=== PATIENT | female | born 1990 | race Caucasian/White ===

== ENCOUNTER → 2022-05-29 | Outpatient (CLI) | payer OTHER ==
[2022-05-29 13:58] VITALS: BP 116/82; PULSE 80; TEMP 98; BMI 41.2
--- NOTE | 2022-05-29 15:50 | P.PN ---
Progress Note - Text Progress Note Date: 05/29/22 Patient left without being seen.
== END ==
LOC: BARWHC3 12:44
PROVIDERS: ATTEND Surgery Plastic and Reconstructive Surgery
DX: Z53.9 Procedure and treatment not carried out, unspecified reason (principal)
CPT/HCPCS: 99202

== ENCOUNTER → 2023-04-28 | Day surgery (SDC) | payer OTHER ==
[~2023-04-28] MED LIST: LIDOCAINE 1% (10MG/ML) FOR IV START INTRADERMA PRN; LIDOCAINE 1% INJ 10MG/ML (20 ML MDV) ONE; ONDANSETRON 4 MG/2 ML VIAL IVP PRN; PROPOFOL 10 MG/ML 20 ML VIAL IV ONE
--- NOTE | 2023-04-28 07:36 | P.GSHP ---
History of Present Illness H&P Date: 04/28/23 CHIEF COMPLAINT: GERD HISTORY OF PRESENT ILLNESS: The patient is a 32-year-old female who presents reports gastroesophageal reflux disease. Upper endoscopy was offered for further evaluation and management. PAST MEDICAL HISTORY: Please see list. PAST SURGICAL HISTORY: Please see list. MEDICATIONS: Please see list. ALLERGIES: Please see list. SOCIAL HISTORY: No illicit drug use FAMILY HISTORY: No reports of Crohn disease or ulcerative colitis. REVIEW OF ORGAN SYSTEMS: CONSTITUTIONAL: No reports of fevers or chills. GI: Denies any blood in stools or constipation. PHYSICAL EXAM: VITAL SIGNS: Stable GENERAL: Well-developed and pleasant in no acute distress. HEENT: No scleral icterus. Extraocular movements grossly intact. Moist buccal mucosa. NECK: Supple without lymphadenopathy. CHEST: Unlabored respirations. Equal bilateral excursions. CARDIOVASCULAR: Regular rate and rhythm. Distal 2+ pulses. ABDOMEN: Soft, nondistended. MUSCULOSKELETAL: No clubbing, cyanosis, or edema. ASSESSMENT: 1. Gastroesophageal reflux disease PLAN: 1. Recommend proceeding with an upper endoscopy Past Medical History Past Medical History: Osteoarthritis (OA) Additional Past Medical History / Comment(s): hx. anemia History of Any Multi-Drug Resistant Organisms: None Reported Past Surgical History: Section Additional Past Surgical History / Comment(s): D&C, wisdom teeth removed Past Anesthesia/Blood Transfusion Reactions: No Reported Reaction, Motion Sickness Smoking Status: Former smoker Medications and Allergies Home Medications Medication Instructions Recorded Confirmed Type Cholecalciferol (Vitamin D3) 125 mcg PO DAILY 05/29/22 04/24/23 History [Vitamin D3 (125 MCG = 5,000 IU)] Sertraline [Zoloft] 50 mg PO DAILY 05/29/22 04/24/23 History buPROPion HCL [buPROPion HCL XL] 150 mg PO DAILY 05/29/22 04/24/23 History hydrOXYzine HCL 50 mg PO HS 03/25/23 04/24/23 History Ferrous Gluconate [Fergon] 27 mg PO DAILY 04/24/23 04/24/23 History Allergies Allergy/AdvReac Type Severity Reaction Status Date / Time No Known Allergies Allergy Verified 04/24/23 17:34
[2023-04-28] MEDS: LACTATED RINGERS 1,000 ML IV SCH (08:15)
[2023-04-28 08:16] VITALS: RESP 16; TEMP 97.1
[2023-04-28] MEDS: MIDAZOLAM 2 MG/2 ML VIAL IVP ONE (08:20)
--- NOTE | 2023-04-28 09:34 | P.PCN ---
Date of Procedure: 04/28/23 Description of Procedure: PREOPERATIVE DIAGNOSIS: Gastroesophageal reflux disease. Morbid obesity. POSTOPERATIVE DIAGNOSIS: Gastroesophageal reflux disease. Morbid obesity. Gastritis. OPERATION: Esophagogastroduodenoscopy with biopsies along esophagus, antrum and duodenum SURGEON: Cheyanne Pavon MD ANESTHESIA: MAC. INDICATIONS: The patient is a 32-year-old female who presents with reflux disease. Benefits and risks of the procedure were described. Informed consent was obtained. DESCRIPTION: The patient was brought into the endoscopy suite and laid in the left lateral decubitus position. An Olympus gastroscope was passed along the posterior oropharynx down to the distal esophagus where the squamocolumnar junction was encountered at 36 cm from the incisors. The stomach was entered and no bile reflux was found. Additional findings are listed below. Biopsies with cold forceps were obtained of the antrum. The first through third portion of the duodenum was examined. Retroflexion of the scope confirmed Hill grade 2 lower esophageal valve. The squamocolumnar junction demonstrated LA grade B erosive esophagitis. The stomach was desufflated. The patient tolerated the procedure well. FINDINGS: Squamocolumnar junction 36 cm from the incisors. Diaphragmatic hiatus at 36 cm. Hill grade 2 lower esophageal valve. LA grade B erosive esophagitis. Biopsies obtained Biopsies obtained of the duodenum. Acute gastritis with bleeding along gastric greater curvature of stomach, 5 mm. Biopsies obtained of antrum RECOMMENDATIONS: Upper endoscopy as needed. Plan - Discharge Summary Discharge Rx Participant: No New Discharge Prescriptions: Continue Cholecalciferol (Vitamin D3) [Vitamin D3 (125 MCG = 5,000 IU)] 125 mcg PO DAILY hydrOXYzine HCL 50 mg PO HS Ferrous Gluconate [Fergon] 27 mg PO DAILY Sertraline [Zoloft] 50 mg PO DAILY buPROPion HCL [buPROPion HCL XL] 150 mg PO DAILY Discharge Medication List Cholecalciferol (Vitamin D3) [Vitamin D3 (125 MCG = 5,000 IU)] 125 mcg PO DAILY 05/29/22 [History] Sertraline [Zoloft] 50 mg PO DAILY 05/29/22 [History] buPROPion HCL [buPROPion HCL XL] 150 mg PO DAILY 05/29/22 [History] hydrOXYzine HCL 50 mg PO HS 03/25/23 [History] Ferrous Gluconate [Fergon] 27 mg PO DAILY 04/24/23 [History] Follow up Appointment(s)/Referral(s): [facility] [NON-STAFF] - 05/21/23 Patient Instructions/Handouts: Gastritis (DC) Discharge Disposition: HOME SELF-CARE
[2023-04-28 10:01] VITALS: BP 97/64; PULSE 56
== END | disposition home or self-care (01) ==
LOC: ORWHC2ENDO 07:34
PROVIDERS: ATTEND Surgery Plastic and Reconstructive Surgery
DX: K21.00 Gastro-esophageal reflux disease with esophagitis, without bleeding (principal); K29.50 Unspecified chronic gastritis without bleeding; K31.9 Disease of stomach and duodenum, unspecified; E66.01 Morbid (severe) obesity due to excess calories; M19.90 Unspecified osteoarthritis, unspecified site; F12.90 Cannabis use, unspecified, uncomplicated; F41.9 Anxiety disorder, unspecified; F31.9 Bipolar disorder, unspecified; Z79.899 Other long term (current) drug therapy; Z87.891 Personal history of nicotine dependence; Z68.41 Body mass index [BMI] 40.0-44.9, adult
CPT/HCPCS: 81025; 88305; 84703; 43239; J2250; J2001; J2704

== ENCOUNTER → 2023-04-30 | Outpatient (CLI) | payer OTHER ==
--- NOTE | 2023-04-30 16:48 | P.BASOAP ---
Subjective Progress Note Date: 04/30/23 SHe reportws abdominal pain and severe reflux. Pathology reviewed. Start omeprazole.She gained 16 pounds! in 1 month. EGD Assessment/Plan Plan: Date: Initial Weight: 94.801 kg Initial BMI: Current Weight: Current BMI: Type of Surgery: Total Volume in Band: Previous Volume: Volume Removed: Volume Added: Band Size:
[2023-04-30 17:26] VITALS: BP 102/71; PULSE 69; RESP 16; TEMP 98.1; BMI 42.1
== END ==
LOC: BARWHC3 15:21
PROVIDERS: ATTEND Surgery Plastic and Reconstructive Surgery
DX: E66.01 Morbid (severe) obesity due to excess calories (principal); Z53.9 Procedure and treatment not carried out, unspecified reason
CPT/HCPCS: 99211

== ENCOUNTER → 2023-05-01 | Outpatient (CLI) | payer SELFPAY ==
[2023-05-01 14:58] LABS: INR 0.9 (<1.2); Partial Thromboplastin Time 26.3 sec (22.0-30.0); Prothrombin Time 10.3 sec (10.0-12.5)
[2023-05-01 18:41] LABS: HCT 40.1 % (37.2-46.3); HGB 12.8 g/dL (12.0-15.0); MCH 26.3 pg (27.0-32.0); MCHC 31.9 g/dL (32.0-37.0); MCV 82.5 FL (80.0-97.0); Mean Platelet Volume 9.6 FL (9.5-12.2); NRBC Per 100 WBC 0 X 10*3/uL (0.00-0.01); Platelet Count 309 X 10*3/uL (140-440); RBC 4.86 X 10*6/uL (4.10-5.20); RDW 13.6 % (11.5-14.5)
[2023-05-01 18:52] LABS: Prealbumin 26.3 mg/dL (18.0-42.0)
[2023-05-01 19:10] LABS: % Iron Saturation 42.52 (12.00-45.00); ALT 44 U/L (8-44); AST 31 U/L (13-35); Albumin 4.3 g/dL (3.8-4.9); Albumin/Globulin Ratio 1.65 Ratio (1.60-3.17); Alkaline Phosphatase 146 U/L (41-126); BUN/Creat Ratio 24.57 Ratio (12.00-20.00); Blood Urea Nitrogen 17.2 mg/dL (9.0-27.0); Carbon Dioxide 25.2 mmol/L (21.6-31.8); Chloride 102 mmol/L (96-109); Chol/HDL Ratio 4.19 Ratio; Ferritin 42.5 ng/mL (10.0-291.0); Globulin 2.6 g/dL (1.6-3.3); Glucose 114 mg/dL (70-110); Iron 162 UG/DL (50-170); LDL Cholesterol,Calculated 92.6 mg/dL (0.0-131.0); Magnesium 1.8 mg/dL (1.5-2.4); Potassium 4.1 mmol/L (3.5-5.5); Sodium 139 mmol/L (135-145); Total Bilirubin 0.2 mg/dL (0.3-1.2); Total Iron Binding Capacity 381 UG/DL (228-460); Total Protein 6.9 g/dL (6.2-8.2)
[2023-05-02 11:51] LABS: Zinc, Serum 59 ug/dL (60-130)
[2023-05-03 09:50] LABS: Anabasine Urine <2.0 ng/mL (<2.0)
== END | disposition home or self-care (01) ==
LOC: LABWHC1 12:16
PROVIDERS: ATTEND Surgery Plastic and Reconstructive Surgery
DX: E66.01 Morbid (severe) obesity due to excess calories (principal); E89.1 Postprocedural hypoinsulinemia; D50.8 Other iron deficiency anemias; K91.2 Postsurgical malabsorption, not elsewhere classified; E44.0 Moderate protein-calorie malnutrition; E44.1 Mild protein-calorie malnutrition; E45 Retarded development following protein-calorie malnutrition; E46 Unspecified protein-calorie malnutrition; E55.9 Vitamin D deficiency, unspecified; K74.1 Hepatic sclerosis; N19 Unspecified kidney failure; T56.894A Toxic effect of other metals, undetermined, initial encounter; K50.90 Crohn's disease, unspecified, without complications
CPT/HCPCS: 36415; 80053; 80061; 80307; 80323; 82306; 82525; 82607; 82728; 82746; 83036; 83540; 83550; 83735; 83970; 84100; 84134; 84255; 84425; 84443; 84590; 84630; 85027; 85610; 85730; 93005

== ENCOUNTER → 2023-05-26 | Outpatient (CLI) | payer OTHER ==
[2023-05-26 15:31] VITALS: BMI 42.7
== END ==
LOC: BARWHC3 12:51
PROVIDERS: ATTEND Surgery Plastic and Reconstructive Surgery
DX: E66.01 Morbid (severe) obesity due to excess calories (principal); Z71.3 Dietary counseling and surveillance; Z68.41 Body mass index [BMI] 40.0-44.9, adult
CPT/HCPCS: 97804; G0463; 99211

== ENCOUNTER → 2023-06-11 | Outpatient (CLI) | payer OTHER ==
[2023-06-11 19:00] LABS: Basophils # (A) 0.04 X 10*3/uL (0.00-0.10); Basophils % (A) 0.5 %; Eosinophils # (A) 0.08 X 10*3/uL (0.04-0.35); HCT 42.1 % (37.2-46.3); HGB 13.4 g/dL (12.0-15.0); Lymphocytes # (A) 1.96 X 10*3/uL (0.90-5.00); Lymphocytes % (A) 25.4 %; MCH 26.8 pg (27.0-32.0); MCHC 31.8 g/dL (32.0-37.0); MCV 84.2 FL (80.0-97.0); Mean Platelet Volume 10.8 FL (9.5-12.2); Monocytes # (A) 0.58 X 10*3/uL (0.20-1.00); Monocytes % (A) 7.5 %; NRBC Per 100 WBC 0 X 10*3/uL (0.00-0.01); Neutrophils # (A) 5.05 X 10*3/uL (1.80-7.70); Neutrophils % (A) 65.3 %; Platelet Count 282 X 10*3/uL (140-440); RDW 13.2 % (11.5-14.5); WBC 7.73 X 10*3/uL (4.50-10.00)
[2023-06-11 19:35] LABS: ALT 14 U/L (8-44); AST 15 U/L (13-35); Albumin 4.5 g/dL (3.8-4.9); Albumin/Globulin Ratio 1.73 Ratio (1.60-3.17); Alkaline Phosphatase 119 U/L (41-126); Calcium 9.7 mg/dL (8.7-10.3); Carbon Dioxide 24.5 mmol/L (21.6-31.8); Chloride 103 mmol/L (96-109); Globulin 2.6 g/dL (1.6-3.3); Glucose 105 mg/dL (70-110); Sodium 139 mmol/L (135-145); Total Bilirubin 0.2 mg/dL (0.3-1.2); Total Protein 7.1 g/dL (6.2-8.2)
== END | disposition home or self-care (01) ==
LOC: LABPAT 14:32
PROVIDERS: ATTEND Surgery Plastic and Reconstructive Surgery
DX: Z01.812 Encounter for preprocedural laboratory examination (principal)
CPT/HCPCS: 36415; 80053; 85025; 86850; 86900; 86901

== ENCOUNTER → 2023-06-11 | Outpatient (CLI) | payer OTHER ==
[2023-06-11 14:18] VITALS: BP 125/74; PULSE 75; RESP 16; TEMP 98.1; BMI 41.5
--- NOTE | 2023-06-11 14:23 | P.BASOAP ---
Subjective Progress Note Date: 06/11/23 DATE OF SERVICE: 06/11/23 CHIEF COMPLAINT: Morbid obesity HISTORY OF PRESENT ILLNESS: Amna Valentine is a 33-year-old female who comes with lifelong morbid obesity. As result of morbid obesity, she has developed osteoarthritis of the hips and knees including gastroesophageal reflux disease. She is here for gastric bypass consent. She has lost 11 pounds on her own prior to her 2 week protein diet. "I feel great!" She take hydoxizine for sleep. She is on medications for night newman and night terrors. She wants to be off her psych medications. At height of 5 feet 1 inches, her ideal body weight is 131 pounds. Highest weight 225 pounds, body mass index 42.4. She comes in 222 pounds. Her body mass index is 41.6. She is 91 pounds overweight. PAST MEDICAL HISTORY: 1. Morbid obesity due to excess calories 2. Body mass index of 41.6 3. Osteoarthritis of the knees. 4. Osteoarthritis of the lower back. 5. Gastroesophageal reflux disease 6. Depressive disorder 7. Generalized anxiety disorder 8. Bipolar disorder 9. Asthma PAST SURGICAL HISTORY: 1. Upper endoscopy 2. section 3. Dilatation and curettage 4. [place] tooth extraction HOME MEDICATIONS: Listed and reviewed ALLERGIES: Seen list and reviewed SOCIAL HISTORY: Past tobacco use. Marijuana use. FAMILY HISTORY: No family history of ulcerative colitis disease or Crohn's disease. Family history of morbid obesity. No lupus in the family. No reports of stomach or esophageal cancer. REVIEW OF ORGAN SYSTEMS: CONSTITUTIONAL: At height of 5 feet 1 inches, her ideal body weight is 131 pounds. Highest weight 225 pounds, body mass index 42.4. She comes in 222 pounds. Her body mass index is 41.6. She is 91 pounds overweight. HEENT: Denies any active troubles with vision or hearing. ENDOCRINE: Denies diabetes. Denies hypothyroidism. CARDIOVASCULAR: Denies reports of palpitations or heart attacks or chest pain. RESPIRATORY: Has daytime somnolence. GASTROINTESTINAL: Denies any bright red blood per rectum. Has gastroesophageal reflux disease. MUSCULOSKELETAL: Has lower back pain and joint pain. Has osteoarthritis of the knees. NEURO: No headaches. No seizure disorders. PSYCH: Has depression. No suicidal ideation. Has bipolar disorder, generalized anxiety. RHEUMATOLOGIC: No lupus. No rheumatoid arthritis. HEMATOLOGIC: Denies any abnormal bleeding or bruising. No personal history of DVTs. SKIN: Has rash. No skin cancer. PHYSICAL EXAM: VITAL SIGNS: Height 5 foot 1 inches, weight 222 pounds. BMI 41.6 Vital Signs Temp 98.1 F 06/11/23 13:58 Pulse 75 06/11/23 13:58 Resp 16 06/11/23 13:58 BP 125/74 06/11/23 13:58 Pulse Ox FiO2 GENERAL: Well-developed in no acute distress. HEENT: No scleral icterus. Extraocular movements grossly intact. Hears conversational speech. No nasal drainage. NECK: Supple without lymphadenopathy. CHEST: Nonlabored respirations with equal bilateral excursions. CARDIOVASCULAR: Regular rate and regular rhythm. Distal 2+ pulses. ABDOMEN: Obese, soft, nontender, nondistended. MUSCULOSKELETAL: No clubbing, cyanosis. NEURO: No focal or lateralizing signs. Cranial nerves 2 through 12 grossly within normal limits. PSYCH: Appropriate affect. Alert and oriented to person, place and time. SKIN: Good skin turgor. Well perfused. LABS: Reviewed from April 2023 demonstrates elevated cholesterol and triglycerides. Vitamin D low 24. Urine cotinine and nicotine elevated. Repeat May 2023 lower. Zinc low EKG April 2023 within normal limits. EGD FINDINGS: Squamocolumnar junction 36 cm from the incisors. Diaphragmatic hiatus at 36 cm. Hill grade 2 lower esophageal valve. LA grade B erosive esophagitis. Biopsies obtained Biopsies obtained of the duodenum. Acute gastritis with bleeding along gastric greater curvature of stomach, 5 mm. Biopsies obtained of antrum Final Pathologic Diagnosis A. DUODENUM, BIOPSY: Benign small bowel mucosa with reactive duodenopathy having rare foveolar metaplasia. Negative for histologic features of celiac disease. B. STOMACH, ANTRUM, BIOPSY: Reactive gastropathy with minimal chronic inflammation. Negative for Helicobacter organisms on H&E staining. C. ESOPHAGUS, BIOPSY: Mild reflux esophagitis. Negative for Barretts esophagus. ASSESSMENT: 1. Morbid obesity due to excess calories 2. Body mass index of 42.4 to 41.6 3. Osteoarthritis of the knees. 4. Osteoarthritis of the lower back. 5. Gastroesophageal reflux disease 6. Depressive disorder 7. Generalized anxiety disorder 8. Bipolar disorder 9. Asthma 10. Insomnia PLAN: 1. Bariatric options between a sleeve, band and a Karlee-en-Y gastric bypass were reviewed in detail. The patient elected for gastric bypass. Robotic assisted approach described. 2. The [place] [facility] Data was also reviewed with benefits and risks as described. 3. An 8 page second-generation bariatric consent form was reviewed in detail including potential of bleeding, infection, leaks, adequate weight loss, nutritional deficiencies which the patient demonstrated understanding of the risks. 4. A 2 week high-protein low caloric 800 kcal diet described to address hepatomegaly. 5. Preoperative labs including complete metabolic panel and CBC with type and screen recommended. 6. DVT prophylaxis per [place] [facility]. 7. Antibiotic prophylaxis. 8. Inpatient hospitalization anticipated for more than 2 nights. 9. All questions and concerns were addressed with the patient. 10. Overall, patient has expressed understanding of bariatric care including postoperative diet and commitment of lifestyle. Patient should benefit from surgical intervention for correction of morbid obesity. 12. Avoiding dehydration reviewed. 13. She has insomnia and takes hydroxyzine for sleep. For sleep alternatives, use of of hot coca, warm milk described. Reduce usage of cell phones at bedtime described. Deep breathing exercises emphasized. 14. Goal of 220 pounds target 5% weight loss advised. 15. She wants sleeve gastrectomy as an alternative in the presence of severe adhesions. 16. She is elevated risk of complications due to comorbid conditions Objective - Vital Signs Vital signs: Vital Signs Temp 98.1 F 06/11/23 13:58 Pulse 75 06/11/23 13:58 Resp 16 06/11/23 13:58 BP 125/74 06/11/23 13:58 Pulse Ox FiO2 Intake & Output 06/10/23 06/11/23 06/11/23 18:59 06:59 18:59 Weight 100.698 kg Assessment/Plan Plan: Date: 06/11/23 Initial Weight: 94.801 kg Initial BMI: 39.2 Current Weight: 100.698 kg Current BMI: 41.5 Type of Surgery: Total Volume in Band: Previous Volume: Volume Removed: Volume Added: Band Size:
== END ==
LOC: BARWHC3 13:39
PROVIDERS: ATTEND Surgery Plastic and Reconstructive Surgery
DX: E66.01 Morbid (severe) obesity due to excess calories (principal); M17.0 Bilateral primary osteoarthritis of knee; M47.816 Spondylosis without myelopathy or radiculopathy, lumbar region; K21.9 Gastro-esophageal reflux disease without esophagitis; F41.1 Generalized anxiety disorder; F31.9 Bipolar disorder, unspecified; J45.909 Unspecified asthma, uncomplicated; G47.00 Insomnia, unspecified; Z68.41 Body mass index [BMI] 40.0-44.9, adult
CPT/HCPCS: 99211

== ENCOUNTER 2023-06-16 06:58 | Inpatient (IN) | payer OTHER ==
--- NOTE | 2023-06-16 06:31 | P.GSHP ---
History of Present Illness H&P Date: 06/16/23 CHIEF COMPLAINT: Morbid obesity HISTORY OF PRESENT ILLNESS: Amna Valentine is a 33-year-old female who comes with lifelong morbid obesity. As result of morbid obesity, she has developed osteoarthritis of the hips and knees. She has completed medical supervised weight loss. She completed medical including cardiac assessment. She has completed psychological risk assessment. All surgical options were reviewed. She elected for gastric bypass. At height of 5 feet 1 inches, her ideal body weight is 131 pounds. She comes in 220 pounds. Her body mass index is 41.6 She is 89 pounds overweight. She reports at home she was over 230+ pounds. She reports over 10 pound weight loss. She has reached her goal 5% weight loss. PAST MEDICAL HISTORY: 1. Morbid obesity due to excess calories 2. Body mass index of 41.6 3. Osteoarthritis of the knees. 4. Osteoarthritis of the lower back. 5. Gastroesophageal reflux disease 6. Depressive disorder 7. Generalized anxiety disorder 8. Bipolar disorder 9. Asthma PAST SURGICAL HISTORY: 1. Upper endoscopy 2. section 3. Dilatation and curettage 4. [place] tooth extraction HOME MEDICATIONS: Listed and reviewed ALLERGIES: Seen list and reviewed SOCIAL HISTORY: Past tobacco use. Marijuana use. FAMILY HISTORY: No family history of ulcerative colitis disease or Crohn's disease. Family history of morbid obesity. No lupus in the family. No reports of stomach or esophageal cancer. REVIEW OF ORGAN SYSTEMS: CONSTITUTIONAL: At height of 5 feet 1 inches, her ideal body weight is 131 pounds. She comes in 220 pounds. Her body mass index is 41.6 She is 89 pounds overweight. Highest weight 226 pounds, BMI 42.7. HEENT: Denies any active troubles with vision or hearing. ENDOCRINE: Denies diabetes. Denies hypothyroidism. CARDIOVASCULAR: Denies reports of palpitations or heart attacks or chest pain. RESPIRATORY: Has daytime somnolence. GASTROINTESTINAL: Denies any bright red blood per rectum. Has gastroesophageal reflux disease. MUSCULOSKELETAL: Has lower back pain and joint pain. Has osteoarthritis of the knees. NEURO: No headaches. No seizure disorders. PSYCH: Has depression. No suicidal ideation. Has bipolar disorder, generalized anxiety. RHEUMATOLOGIC: No lupus. No rheumatoid arthritis. HEMATOLOGIC: Denies any abnormal bleeding or bruising. No personal history of DVTs. SKIN: Has rash. No skin cancer. PHYSICAL EXAM: VITAL SIGNS: Height 5 foot 1 inches, weight 220 pounds. BMI 41.6 GENERAL: Well-developed in no acute distress. HEENT: No scleral icterus. Extraocular movements grossly intact. Hears conversational speech. No nasal drainage. NECK: Supple without lymphadenopathy. CHEST: Nonlabored respirations with equal bilateral excursions. CARDIOVASCULAR: Regular rate and regular rhythm. Distal 2+ pulses. ABDOMEN: Obese, soft, nontender, nondistended. MUSCULOSKELETAL: No clubbing, cyanosis. NEURO: No focal or lateralizing signs. Cranial nerves 2 through 12 grossly within normal limits. PSYCH: Appropriate affect. Alert and oriented to person, place and time. SKIN: Good skin turgor. Well perfused. ASSESSMENT: 1. Morbid obesity due to excess calories 2. Body mass index of 41.6 3. Osteoarthritis of the knees. 4. Osteoarthritis of the lower back. 5. Gastroesophageal reflux disease 6. Depressive disorder 7. Generalized anxiety disorder 8. Bipolar disorder 9. Asthma PLAN: 1. Bariatric options between a sleeve, band and a Karlee-en-Y gastric bypass were reviewed in detail. The patient elected for a gastric bypass. Robotic assisted approach described. 2. The [place] [facility] Data was also reviewed with benefits and risks as described. 3. An 8 page second-generation bariatric consent form was reviewed in detail including potential of bleeding, infection, leaks, adequate weight loss, nutritional deficiencies which the patient demonstrated understanding of the risks. 4. A 2 week high-protein low caloric 800 kcal diet described to address hepatomegaly. 5. Preoperative labs including complete metabolic panel and CBC with type and screen recommended. 6. DVT prophylaxis per [place] [facility]. 7. Antibiotic prophylaxis. 8. Inpatient hospitalization anticipated for more than 2 nights. 9. All questions and concerns were addressed with the patient. 10. She is at elevated risk for perioperative complications with multiple antidepressants due to increased risk of bleeding. 11. Overall, patient has expressed understanding of bariatric care including postoperative diet and commitment of lifestyle. Patient should benefit from surgical intervention for correction of her morbid obesity. 12. Patient does report that if findings during surgery demonstrates moderate intra-abdominal adhesions, she is elected for sleeve gastrectomy as alternative. Past Medical History Past Medical History: Asthma, Osteoarthritis (OA) Additional Past Medical History / Comment(s): hx. anemia,does not use inhalers for asthma History of Any Multi-Drug Resistant Organisms: None Reported Past Surgical History: Section Additional Past Surgical History / Comment(s): D&C, wisdom teeth removed Past Anesthesia/Blood Transfusion Reactions: No Reported Reaction, Family History of Problems w/ Anesthesia, Motion Sickness Additional Past Anesthesia/Blood Transfusion Reaction / Comment(s): no hx blood transfusion. mom has PONV Smoking Status: Former smoker - Past Family History Mother Family Medical History: No Reported History Father Family Medical History: Deep Vein Thrombosis (DVT) Medications and Allergies Home Medications Medication Instructions Recorded Confirmed Type Cholecalciferol (Vitamin D3) 125 mcg PO DAILY 05/29/22 06/13/23 History [Vitamin D3 (125 MCG = 5,000 IU)] Sertraline [Zoloft] 75 mg PO QAM 05/29/22 06/13/23 History buPROPion HCL [buPROPion HCL XL] 150 mg PO QAM 05/29/22 06/13/23 History hydrOXYzine HCL 50 mg PO HS 03/25/23 06/13/23 History Iron 27 mg PO DAILY 06/11/23 06/13/23 History Multivitamins, Thera [Multivitamin 1 tab PO DAILY 06/11/23 06/13/23 History (formulary)] Allergies Allergy/AdvReac Type Severity Reaction Status Date / Time No Known Allergies Allergy Verified 06/11/23 15:56
[2023-06-16] MEDS: LACTATED RINGERS 1,000 ML IV SCH (07:33)
[2023-06-16] MEDS: ALVIMOPAN 12 MG CAPSULE PO PRN (08:07)
[2023-06-16] MEDS: ACETAMINOPHEN TAB 500 MG TAB PO PRN (08:07)
[2023-06-16] MEDS: SCOPOLAMINE 1 MG/72 HR PATCH TRANSDERM STA ×2 (08:08→15:42)
[2023-06-16] MEDS: ONDANSETRON 4 MG/2 ML VIAL IVP PRN (08:14)
[2023-06-16] MEDS: DEXAMETHASONE SOD PHOSPHATE 4 MG/ML 1 ML VIAL IV ONE (08:14)
[2023-06-16] MEDS: PANTOPRAZOLE 40 MG/10 ML VIAL IVP STA (08:15)
[2023-06-16] MEDS: HEPARIN SODIUM,PORCINE 5,000 UNIT/ML 1 ML VIAL SQ PRN (08:15)
[2023-06-16] MEDS: CHLORHEXIDINE GLUCONATE 15 ML CUP MUCOUS MEM STA (08:17)
[2023-06-16] MEDS: MIDAZOLAM 2 MG/2 ML VIAL IVP ONE (08:22)
[2023-06-16] MEDS ORDERED: ROCURONIUM 10 MG/ML (5 ML VIAL) IV ONE (09:58)
[2023-06-16] MEDS ORDERED: fentaNYL (PF) 50 MCG/ML 2 ML AMP ONE (09:58)
[2023-06-16] MEDS ORDERED: GLYCOPYRROLATE 0.2 MG/ML 2 ML VIAL ONE (09:58)
[2023-06-16] MEDS ORDERED: SUCCINYLCHOLINE CHLORIDE 200 MG/10 ML VIAL IV ONE (09:58)
[2023-06-16] MEDS ORDERED: ONDANSETRON 4 MG/2 ML VIAL ONE (09:58)
[2023-06-16] MEDS ORDERED: diphenhydrAMINE 50 MG/ML 1 ML VIAL ONE (09:58)
[2023-06-16] MEDS ORDERED: PHENYLEPHRINE 10 MG/ML VIAL ONE (09:58)
[2023-06-16] MEDS ORDERED: LIDOCAINE 1% INJ 10MG/ML (20 ML MDV) ONE (09:58)
[2023-06-16] MEDS ORDERED: NEOSTIGMINE 1 MG/ML 10 ML VIAL ONE (09:58)
[2023-06-16] MEDS ORDERED: PROPOFOL 10 MG/ML 20 ML VIAL IV ONE (09:58)
[2023-06-16] MEDS ORDERED: MIDAZOLAM 2 MG/2 ML VIAL ONE (09:58)
[2023-06-16] MEDS: LIDOCAINE 1%-EPI 1:100,000 20 ML VIAL SQ ONE (10:03)
[2023-06-16] MEDS: LACTATED RINGERS 1,000 ML IV ONE (11:38)
[2023-06-16] MEDS ORDERED: NALOXONE 0.4 MG/ML 1 ML VIAL IV PRN (13:05)
[2023-06-16] MEDS: HYDROmorphone 0.5 MG/0.5 ML SYRINGE IVP PRN (13:11)
--- NOTE | 2023-06-16 13:12 | P.OP ---
Date of Procedure: 06/16/23 Description of Procedure: SURGEON: VLADIMIR VELAZQUEZ MD PREOPERATIVE DIAGNOSES: 1. Morbid obesity due to excess calories 2. Body mass index of 41.6 3. Osteoarthritis of the knees. 4. Osteoarthritis of the lower back. 5. Gastroesophageal reflux disease 6. Depressive disorder 7. Generalized anxiety disorder 8. Bipolar disorder 9. Asthma POSTOPERATIVE DIAGNOSES: 1. Morbid obesity due to excess calories 2. Body mass index of 41.6 3. Osteoarthritis of the knees. 4. Osteoarthritis of the lower back. 5. Gastroesophageal reflux disease 6. Depressive disorder 7. Generalized anxiety disorder 8. Bipolar disorder 9. Asthma OPERATION: 1. Robotic assisted da Lou Xi laparoscopic Antonio-en-Y gastric bypass, 100 cm antecolic antegastric Antonio limb, with 25 mm EEA. 2. Intraoperative esophagogastrojejunoscopy. ANESTHESIA: GETA and local ESTIMATED BLOOD LOSS: 20 mL SPECIMENS REMOVED: None. COMPLICATIONS: NONE. Operative Findings: 1. Biliopancreatic limb 60 cm 2. Bypass performed using 100 cm antonio limb secondary to avoid increased tension at 150 cm. 3. Jejunojejunostomy and Mcgovern's defects closed using 2-0 V-LOC, green 4. Leak test negative with gastrojejunal anastomosis patent and hemostatic. 5. Reinforcement sutures were placed along the gastrojejunal anastomosis at 3:00, 9:00 and 12:00. INDICATIONS: Amna Valentine is a 33-year-old female who comes with lifelong morbid obesity. As result of morbid obesity, she has developed osteoarthritis of the hips and knees. She has completed medical supervised weight loss. She completed medical including cardiac assessment. She has completed psychological risk assessment. All surgical options were reviewed. She elected for gastric bypass. At height of 5 feet 1 inches, her ideal body weight is 131 pounds. She comes in 220 pounds. Her body mass index is 41.6 She is 89 pounds overweight. She repo rts at home she was over 230+ pounds. She reports over 10 pound weight loss. She has reached her goal 5% weight loss. A second-generation bariatric consent form was described in detail including the possibility of protein malnutrition, leaks, gastrojejunal stricture, venous thrombosis, need for further surgery for which she demonstrated understanding. Benefits and risks of the procedure were described at length. Informed consent was obtained. DESCRIPTION: The patient was brought into the operating room theater. She was placed supine. She had received heparin subcutaneously for DVT prophylaxis. Additionally Peridex oral solution as an oral decontaminant was placed per anesthesia. After general induction, the abdomen was prepped and draped in standard sterile fashion. Ioban draping was placed along the abdomen. Lynn catheter was avoided. A robotic da Lou Xi system was prepped and primed. Incisions were proposed at 15 cm from the xiphoid. Proposed port sites were marked with indelible marker along the anterior axillary line bilaterally, mid clavicular line bilaterally with each port marked 10 cm from each other. The robotic stapler port was marked for the right midclavicular line including along the left midclavicular line. A 5 mm 0 degrees laparoscopic trocar entry was performed along the left upper quadrant. The abdomen was insufflated to 15 mmHg pressure, which she tolerated well. Diagnostic laparoscopy demonstrated no injury to bowel, viscera, or mesentery. The liver was consistent with her 2-week protein diet without hepatomegaly. Additionally, pelvic adhesions of omentum to the lower abdomen was found consistent with a prior C-sections. An 8 mm camera port was placed left lateral to the umbilicus at the epigastrium, 15 cm distal to the xiphoid. Next, 12-mm robot stapler port was placed along the right mid abdomen. An 12 mm port was exchanged along the left upper quadrant. An 8 mm port was placed on the left lateral abdominal wall under direct visualization Please note that the ports were placed 18 to 20 cm away from the target anatomy of the stomach. Care was taken to check that each robotic arm was safely away from collision with the bed or the patient. At the epigastrium, a medium sized Dmitri liver retractor was placed under direct visualization with the Iron Arborer placed under the right shoulder of the patient. The patient was repositioned in reverse Trendelenburg position at 25-degrees after lowering the bed. The robot was docked over the patient. Using grasper for arm 3, a grasper for arm 1, including vessel sealer for arm 4, the robotic system was docked and primed as described. Instruments were interchanged by the assistant produce manager including endoscissors, the needle truck driver supervisor, and stapler. I had sat at the console. Next, the transverse mesocolon was reflected into the upper abdomen for the jejunojejunostomy portion of the case. The ligament of Treitz was identified and measured 60 cm antegrade and marked using 3-0 Silk. The jejunum was divided at the 60 cm point using 60-mm white loads above the suture measurement. The biliopancreatic limb was held in place. The Antonio limb was measured 100 cm in an antegrade fashion to avoid tension along the proposed gastrojejunal anastomosis. At 100 cm along the anti-mesenteric border of the Antonio limb, a jejunojejunostomy was proposed whereby enterotomies were created along the biliopancreatic limb including the Antonio limb using a Bovie cautery. A stay suture of 3-0 Slik was placed to align and create the anastomosis. The enterotomies along the anti- mesenteric borders were created followed by unidirectional fire from the patient's right side using 60 mm white loads [employer] technology robotic stapler. The jejunojejunostomy was found to be hemostatic. The enterotomy was closed after horizontal mattress stitch of 3-0 silk used to elevate the enterotomy followed by closure with the robotic stapler blue load. The jejunal limb was temporarily tacked along the left upper quadrant. Attention was now brought to the creation of the gastrojejunostomy. Along the lesser curvature of the stomach, dissection was made along the retrogastric space to allow first firing of the robotic staple. Total of two rosio of green loads and blue loads of 60 mm staplers were used to divide the stomach to create the gastric pouch. The patient was then prepared for placement of a Orvil. A 25-mm Orvil was selected for placement by the nurse repair miller. The Orvil tubing was placed anterior to the staple line of the gastric pouch and brought out through the left inferior lateral port. I re-scrubbed into the case. The robotic arms were temporarily undocked. The Orvil was then carefully and successfully navigated with the help of the nurse repair miller into the gastric pouch. The sutures were identified and divided. The tubing was from the 25 mm anvil. As the Orvil had been placed, the jejunal limb was brought proximally into the upper abdomen. No torsion was found upon the Antonio limb. No tension was identified as the limb was brought along the upper abdomen. The jejunal limb was previously opened using hook cautery. The 25-mm EEA stapler was brought through the left anterior lateral port site from the left side. The EEA stapler was brought through the open jejunal limb and its needle was deployed at the antimesenteric border where the anvil were mated for approximately 1 minute upon firing. The stapler was removed after irrigating the shaft of the instrument with warm normal saline. Donuts were found to be intact and on both sides. The SwingTimei Xi robot arms were then re-docked. I sat at the console. The open jejunal limb defect was closed using 60 mm blue loads after releasing any tension from the blind jejunal limb. No redundancy was present for jejunal limb. The transverse mesocolon was divided for the antonio limb. Reinforcement sutures were placed along the gastrojejunal anastomosis and placed along the 3:00, 9:00, 12:00 o'clock position using 3-0 Vicryl. The Mcgovern and jejunojejunostomy mesenteric defect was closed using 2-0 V LOC, green. I then went to the head of the bed to perform the esophagogastrojejunoscopy and a leak test. An Olympus gastroscope was passed alongthe posterior oropharynx which was unremarkable for any injury to the vocal cords. The scope was passed down to the proximal portion of the pouch, whereby no active bleeding was encountered. Excellent visualization of the gastrojejunostomy anastomosis, including the Antonio limb was encountered with endoscopic image obtained. The anastomosis was found to be patent without active bleeding. Residual blood was suctioned from the gastric pouch. The gastrointestinal tract was desufflated. No evidence of intraoperative leak was encountered as the gastric pouch and anastomosis were submerged under normal saline solution. The robot was then undocked. I then went back to the bedside of the patient, whereby with coordinated effort of the assistant produce manager, irrigation was aspirated from the upper abdominal cavity. Tisseal was placed circumferentially over the anastomosis of the gastrojejunostomy. The fascial defect of the EEA stapler was closed using Calixto Sparks and 0 Vicryl. All instruments and pneumoperitoneum were evacuated from the abdominal cavity. The port correlating with the EEA stapler device was cleansed with normal saline solution and hydrogen peroxide. The rest of incisions were reapproximated using 4-0 Monocryl in an interrupted subcuticular fashion. Local anesthetic was infiltrated along the skin for postop analgesia. Liquid glue was applied to the skin. OptiFoam dressing was placed along the EEA stapler site. At the end of the procedure, needle, sponge and instrument count had been verified correct by the surgical instrument technician. The patient had tolerated the procedure well and was extubated and taken to the postanesthesia unit in stable condition.
[2023-06-16] MEDS: diphenhydrAMINE 50 MG/ML 1 ML VIAL IVP PRN (14:36)
[2023-06-16] MEDS: ONDANSETRON 4 MG/2 ML VIAL IVP ONE (15:31)
[2023-06-16] MEDS: droPERidol 5 MG/2 ML VIAL IVP ONE (15:31)
[2023-06-16] MEDS: METOCLOPRAMIDE 5 MG/ML 2 ML VIAL IVP SCH (15:42)
[2023-06-16] MEDS: SODIUM CHLORIDE 0.9% 2,000 ML IV ONE (15:42)
[2023-06-16] MEDS: SIMETHICONE 80 MG CHEWABLE PO SCH (15:42)
[2023-06-16] MEDS: ALBUTEROL NEBULIZED 2.5 MG/3 ML INHALATION SCH (16:08)
[2023-06-16] MEDS: HYDROmorphone 1 MG/ML 1 ML SYRINGE IVP PRN (17:35)
[2023-06-16] MEDS: ACETAMINOPHEN IV (For NPO) 1,000 MG in EMPTY BAG 1 BAG IVPB SCH (17:36)
[2023-06-16] MEDS: ONDANSETRON 4 MG/2 ML VIAL IVP SCH (17:36)
[2023-06-16] MEDS: 0.9% NACL WITH KCL 20 MEQ/L 1,000 ML IV SCH (17:36)
[2023-06-16] MEDS: PANTOPRAZOLE 40 MG/10 ML VIAL IVP SCH (20:46)
[2023-06-16] MEDS: HEPARIN SODIUM,PORCINE 5,000 UNIT/ML 1 ML VIAL SQ SCH (20:46)
[2023-06-17] MEDS: 0.9% NACL WITH KCL 20 MEQ/L 1,000 ML IV SCH (08:40)
[2023-06-17 08:43] LABS: HCT 33.3 % (37.2-46.3); HGB 10.7 g/dL (12.0-15.0); MCH 26.4 pg (27.0-32.0); MCHC 32.1 g/dL (32.0-37.0); MCV 82.2 FL (80.0-97.0); Mean Platelet Volume 10.3 FL (9.5-12.2); NRBC Per 100 WBC 0 X 10*3/uL (0.00-0.01); Platelet Count 244 X 10*3/uL (140-440); RBC 4.05 X 10*6/uL (4.10-5.20); RDW 13.5 % (11.5-14.5); WBC 12.99 X 10*3/uL (4.50-10.00)
[2023-06-17 08:44] LABS: Basophils # (A) 0.01 X 10*3/uL (0.00-0.10); Basophils % (A) 0.1 %; Eosinophils # (A) 0 X 10*3/uL (0.04-0.35); Eosinophils % (A) 0 %; Lymphocytes # (A) 1.16 X 10*3/uL (0.90-5.00); Lymphocytes % (A) 8.9 %; Monocytes # (A) 0.76 X 10*3/uL (0.20-1.00); Monocytes % (A) 5.9 %; Neutrophils # (A) 11.01 X 10*3/uL (1.80-7.70); Neutrophils % (A) 84.7 %
[2023-06-17 09:20] LABS: Blood Urea Nitrogen 10.2 mg/dL (9.0-27.0); Calcium 8.4 mg/dL (8.7-10.3); Carbon Dioxide 22.8 mmol/L (21.6-31.8); Chloride 106 mmol/L (96-109); Magnesium 2.1 mg/dL (1.5-2.4); Phosphorus 1.9 mg/dL (2.4-5.1); Potassium 4.2 mmol/L (3.5-5.5); Sodium 139 mmol/L (135-145)
--- NOTE | 2023-06-17 12:19 | FL ---
SINGLE CONTRAST UPPER GI EXAMINATION: CLINICAL HISTORY: 33-year-old female postop bariatric surgery, Karlee-en-Y gastric bypass TECHNIQUE: Single contrast exam performed with 1 ounce Isovue-370 contrast. Total fluoroscopy time: 1 minute 13 seconds Total images: 22 DOSE AREA PRODUCT (DAP) UGY*M,MGY*CM: 484.12 FINDINGS: The patient swallowed oral contrast without difficulty or delay. Esophageal peristalsis and motility are within normal limits. There is prompt passage of contrast from the esophagus into the stomach an d subsequently across the gastrojejunostomy. There is no evidence of contrast extravasation to sugges t leak. No postsurgical free air is seen. IMPRESSION: No evidence of leak or significant obstruction status post Karlee-en-Y gastric bypass.
[2023-06-17 13:41] VITALS: BMI 41.3
[2023-06-17] MEDS ORDERED: POTAS-SOD-PHOS 278-164-250 MG 1 EACH PACKET PO SCH (14:40)
--- NOTE | 2023-06-17 14:43 | P.DS ---
Providers Date of admission: 06/16/23 06:58 Expected date of discharge: 06/17/23 Attending physician: Cheyanne Pavon Consults: 06/16/23 06:33 Consult Physician Routine Consulting Provider: [facility] Consult Reason/Comments: TIVA for gastric bypass Do you want consulting provider notified?: Yes Primary care physician: Stated None Hospital Course: Discharge diagnosis 1. Morbid obesity due to excess calories 2. Body mass index of 41.6 3. Osteoarthritis of the knees. 4. Osteoarthritis of the lower back. 5. Gastroesophageal reflux disease 6. Depressive disorder 7. Generalized anxiety disorder 8. Bipolar disorder 9. Asthma Hospital course Amna Valentine is a 33-year-old female who comes with lifelong morbid obesity. Patient is status post robotic assisted Karlee-en-Y gastric bypass. Patient is tolerating liquid diet. Upper GI shows no evidence of leak or obstruction. Her pain is controlled. She is afebrile. She denies any difficulty urinating. She is up and ambulating. She is stable for discharge. Physician Director Of Casework note has been reviewed by physician. Signing provider agrees with the documented findings, assessment, and plan of care. Patient Condition at Discharge: Stable Plan - Discharge Summary Discharge Rx Participant: No New Discharge Prescriptions: New Simethicone 40 mg/0.6 ml Drops [Mylicon Drops] 40 mg PO PCHS PRN #30 ml PRN Reason: Gas Omeprazole [PriLOSEC] 40 mg PO DAILY 3 Days #90 cap Acetaminophen Tab [Tylenol] 1,000 mg PO Q6HR PRN #30 tablet PRN Reason: Pain Ondansetron Odt [Zofran Odt] 4 mg PO Q8HR PRN #9 tab PRN Reason: Nausea bisacodyL [Dulcolax] 5 mg PO DAILY PRN #10 tab PRN Reason: Constipation Continue hydrOXYzine HCL 50 mg PO HS Discontinued Cholecalciferol (Vitamin D3) [Vitamin D3 (125 MCG = 5,000 IU)] 125 mcg PO DAILY Iron 27 mg PO DAILY Multivitamins, Thera [Multivitamin (formulary)] 1 tab PO DAILY Sertraline [Zoloft] 75 mg PO QAM buPROPion HCL [buPROPion HCL XL] 150 mg PO QAM Discharge Medication List hydrOXYzine HCL 50 mg PO HS 03/25/23 [History] Acetaminophen Tab [Tylenol] 1,000 mg PO Q6HR PRN #30 tablet 06/17/23 [Rx] Omeprazole [PriLOSEC] 40 mg PO DAILY 3 Days #90 cap 06/17/23 [Rx] Ondansetron Odt [Zofran Odt] 4 mg PO Q8HR PRN #9 tab 06/17/23 [Rx] Simethicone 40 mg/0.6 ml Drops [Mylicon Drops] 40 mg PO PCHS PRN #30 ml 06/17/23 [Rx] bisacodyL [Dulcolax] 5 mg PO DAILY PRN #10 tab 06/17/23 [Rx] Follow up Appointment(s)/Ref[facility] [place] [facility] - 06/20/23 9:00 am Patient Instructions/Handouts: *Surgery [facility] - Scopalamine Patch Instructions Activity/Diet/Wound Care/Special Instructions: Liquid diet only for 2 weeks No lifting over 4 pounds in 4 weeks, May Shower. No soaking in bath tubs for 2 weeks Please notify your surgeon if you develop nausea and vomiting including new onset of abdominal pain. Continue to use incentive spirometry to prevent pneumonias. Please continue to ambulate at home to prevent blood clots in legs. Follow-up at the bariatric center. May shower. Dressings to be discontinued by surgeon in the office. Drink 64 oz of fluid daily. Start protein shakes on . Notify bariatric center for temp over 101.0, increased pain, drainage from incisions. No straws or carbonated beverages. Liquid diet only. Sugar content should be less than 6 g to avoid dumping syndrome. Take MOM for constipation. CRUSH, OPEN, OR CUT TABLETS LARGER THAN A SIZE OF A TIC TAC Hold on taking vitamins, Zoloft and Wellbutrin due to increased bleeding risk Discharge Disposition: HOME SELF-CARE
[2023-06-17 15:14] VITALS: BP 93/54; PULSE 70; RESP 14; TEMP 98.1
== END 2023-06-17 16:05 | disposition home or self-care (01) | DRG 403 ==
LOC: 2ORMAIN 06:58 → 4SSUR 14:53
PROVIDERS: ADMIT Surgery Plastic and Reconstructive Surgery; ATTEND Surgery Plastic and Reconstructive Surgery
PROC: 0DJ08ZZ Inspection of Upper Intestinal Tract, Via Natural or Artificial Opening Endoscopic (ICD-10-PCS; principal; 2023-06-16 08:30)
PROC: 8E0W4CZ Robotic Assisted Procedure of Trunk Region, Percutaneous Endoscopic Approach (ICD-10-PCS; principal; 2023-06-16 08:30)
PROC: 0D164ZA Bypass Stomach to Jejunum, Percutaneous Endoscopic Approach (ICD-10-PCS; principal; 2023-06-16 08:30)
DX: E66.01 Morbid (severe) obesity due to excess calories (principal); Z68.41 Body mass index [BMI] 40.0-44.9, adult; M17.0 Bilateral primary osteoarthritis of knee; M47.816 Spondylosis without myelopathy or radiculopathy, lumbar region; K21.9 Gastro-esophageal reflux disease without esophagitis; F41.1 Generalized anxiety disorder; D72.829 Elevated white blood cell count, unspecified; E83.39 Other disorders of phosphorus metabolism; F31.9 Bipolar disorder, unspecified; J45.909 Unspecified asthma, uncomplicated; M16.0 Bilateral primary osteoarthritis of hip; K66.0 Peritoneal adhesions (postprocedural) (postinfection); Z87.891 Personal history of nicotine dependence; Z28.310 Unvaccinated for COVID-19; Z79.899 Other long term (current) drug therapy
CPT/HCPCS: 74240; 80051; 82310; 82565; 83735; 84100; 84520; 84703; 85025

== ENCOUNTER → 2023-06-20 | Outpatient (CLI) | payer OTHER ==
[2023-06-20 09:57] VITALS: BP 106/73; PULSE 60; RESP 14; TEMP 97.5; BMI 41.2
--- NOTE | 2023-06-20 11:03 | P.BASOAP ---
Subjective Progress Note Date: 06/20/23 Reports soreness appropriate. No infection. Reports feeling to have a bowel movement today. Abdominal binder reinforced. Close outpatient follow-up next week. Vital signs stable. Additional binder dispensed. Son and at bedside. Additional pain medication prescribed Flexeril Objective - Vital Signs Vital signs: Vital Signs Temp 97.5 F L 06/20/23 09:24 Pulse 60 06/20/23 09:24 Resp 14 06/20/23 09:24 BP 106/73 06/20/23 09:24 Pulse Ox FiO2 Intake & Output 06/19/23 06/20/23 06/20/23 18:59 06:59 18:59 Weight 99.79 kg Assessment/Plan Plan: Date: 06/20/23 Initial Weight: 94.801 kg Initial BMI: 39.2 Current Weight: 99.79 kg Current BMI: 41.2 Type of Surgery: Total Volume in Band: Previous Volume: Volume Removed: Volume Added: Band Size:
== END ==
LOC: BARWHC3 08:55
PROVIDERS: ATTEND Surgery Plastic and Reconstructive Surgery
DX: E66.9 Obesity, unspecified (principal); F43.20 Adjustment disorder, unspecified; Z98.84 Bariatric surgery status; Z90.3 Acquired absence of stomach [part of]; Z68.41 Body mass index [BMI] 40.0-44.9, adult
CPT/HCPCS: 99211

== ENCOUNTER → 2023-06-25 | Outpatient (CLI) | payer OTHER ==
[2023-06-25 13:38] VITALS: BP 110/72; PULSE 88; RESP 14; TEMP 98; BMI 39.2
--- NOTE | 2023-06-25 13:52 | P.BASOAP ---
Subjective Progress Note Date: 06/25/23 She reports troubles with skin and panniculitis. Nystatin will be prescribed. No heartburn. No dysphagia. She had a bowel movement and feels much better! Lost 15 pounds in 2 weeks. Objective - Vital Signs Vital signs: Vital Signs Temp 98 F 06/25/23 13:23 Pulse 88 06/25/23 13:23 Resp 14 06/25/23 13:23 BP 110/72 06/25/23 13:23 Pulse Ox FiO2 Intake & Output 06/24/23 06/25/23 06/25/23 18:59 06:59 18:59 Weight 94.801 kg Assessment/Plan Plan: Date: 06/25/23 Initial Weight: 94.801 kg Initial BMI: 39.2 Current Weight: 94.801 kg Current BMI: 39.2 Type of Surgery: Total Volume in Band: Previous Volume: Volume Removed: Volume Added: Band Size:
== END | disposition home or self-care (01) ==
LOC: BARWHC3 13:05
PROVIDERS: ATTEND Surgery Plastic and Reconstructive Surgery
DX: E66.01 Morbid (severe) obesity due to excess calories (principal); M79.3 Panniculitis, unspecified; Z71.3 Dietary counseling and surveillance; Z87.891 Personal history of nicotine dependence; Z68.39 Body mass index [BMI] 39.0-39.9, adult
CPT/HCPCS: 97802; G0463; 99211

== ENCOUNTER 2023-07-09 12:44 | Emergency (ER) | payer OTHER ==
[2023-07-09 13:33] VITALS: RESP 18
[2023-07-09 14:00] LABS: Basophils % (A) 1 %; Eosinophils # (A) 0.2 k/uL (0-0.7); Eosinophils % (A) 2 %; HCT 44.5 % (34.0-46.0); HGB 14.4 gm/dL (11.4-16.0); Lymphocytes # (A) 1.8 k/uL (1.0-4.8); Lymphocytes % (A) 22 %; MCH 26.8 pg (25.0-35.0); MCHC 32.3 g/dL (31.0-37.0); MCV 82.9 fL (80.0-100.0); Mean Platelet Volume 8.8; Monocytes # (A) 0.4 k/uL (0-1.0); Monocytes % (A) 6 %; Neutrophils # (A) 5.5 k/uL (1.3-7.7); Neutrophils % (A) 68 %; Platelet Count 256 k/uL (150-450); RBC 5.37 m/uL (3.80-5.40); RDW 13.8 % (11.5-15.5)
[2023-07-09 14:17] LABS: Appearance,Urine Clear (Clear); Bacteria,Urine Moderate /hpf; Bilirubin,Urine Negative (Negative); Blood,Urine Small (Negative); Color,Urine Yellow; Glucose,Urine (UA) Negative (Negative); Hyaline Casts,Urine 3 /lpf (0-2); Ketones,Urine 1+ (Negative); Leukocyte Esterase,Urine Negative (Negative); Mucus,Urine Many /hpf; Nitrite,Urine Positive (Negative); Protein,Urine Trace (Negative); RBC,Urine 4 /hpf (0-5); Specific Gravity,Urine 1.044 (1.001-1.035); Squamous Epithelial Cell,Urine 1 /hpf (0-4); Urobilinogen,Urine <2.0 mg/dL (<2.0); WBC,Urine 1 /hpf (0-5)
[2023-07-09 14:20] LABS: ALT 23 U/L (4-34); AST 29 U/L (14-36); African American GFR (CKD) >90 (>60 ml/min/1.73 sqM); Albumin 4.8 g/dL (3.5-5.0); Alkaline Phosphatase 116 U/L (38-126); Amylase 49 U/L (30-110); Anion Gap 12 mmol/L; Blood Urea Nitrogen 18 mg/dL (7-17); Calcium 9.9 mg/dL (8.4-10.2); Carbon Dioxide 19 mmol/L (22-30); Chloride 108 mmol/L (98-107); Glucose 81 mg/dL (74-99); Lipase 252 U/L (23-300); Magnesium 1.7 mg/dL (1.6-2.3); Non-African American GFR(CKD) >90 (>60 ml/min/1.73 sqM); Potassium 4.1 mmol/L (3.5-5.1); Sodium 139 mmol/L (137-145); Total Bilirubin 0.5 mg/dL (0.2-1.3); Total Protein 7.9 g/dL (6.3-8.2)
[2023-07-09] MEDS ORDERED: IOPAMIDOL CONTRAST (ORAL USE) VIAL PO PRN (14:39)
--- NOTE | 2023-07-09 15:45 | ED ---
Abdominal Pain HPI - General Source: patient, RN notes reviewed Mode of arrival: ambulatory Limitations: no limitations <Tom Porras - Last Filed: 07/09/23 15:43> - General Source: RN notes reviewed, old records reviewed Mode of arrival: ambulatory Limitations: no limitations - History of Present Illness MD Complaint: abdominal pain, other (Postoperative pain) -: days(s) Location: diffuse, epigastric, suprapubic Radiation: none Migration to: periumbilical Severity: moderate Severity scale (1-10): 4 Quality: cramping, stabbing, aching Consistency: constant Improves With: nothing Worsens With: nothing Associated Symptoms: nausea, vomiting Treatments Prior to Arrival: other (0) <Andriy Olmstead - Last Filed: 07/24/23 13:56> - General Chief Complaint: Abdominal Pain Stated Complaint: Abdominal Pain Time Seen by Provider: 07/09/23 13:01 - History of Present Illness Initial Comments: 33-year-old female presents emergency department with chief complaint of pain, nausea, dehydration. Patient states that she had gastric bypass surgery at the beginning the month by Dr. Pavon patient states that she has been having creasing pain, discomfort. She states that she has minimal oral intake because of her symptoms and her heart rate has been elevated. She denies any fevers/chest pain no flank pain she has left-sided abdominal pain. Patient co ntacted office and advised to come to emergency room for evaluation. (Tom Porras) This is a 33-year-old female to the ER for evaluation of nausea vomiting diarrhea dehydration, patient is a couple weeks out of gastric bypass surgery and pain has been getting worse over the last few days (Andriy Olmstead) - Related Data Home Medications Medication Instructions Recorded Confirmed hydrOXYzine HCL 50 mg PO HS 03/25/23 06/25/23 Previous Rx's Medication Instructions Recorded Acetaminophen Tab [Tylenol] 1,000 mg PO Q6HR PRN #30 tablet 06/17/23 Omeprazole [PriLOSEC] 40 mg PO DAILY 3 Days #90 cap 06/17/23 Ondansetron Odt [Zofran Odt] 4 mg PO Q8HR PRN #9 tab 06/17/23 Simethicone 40 mg/0.6 ml Drops 40 mg PO PCHS PRN #30 ml 06/17/23 [Mylicon Drops] bisacodyL [Dulcolax] 5 mg PO DAILY PRN #10 tab 06/17/23 Cyclobenzaprine [Flexeril] 10 mg PO TID #30 tab 06/20/23 Allergies Allergy/AdvReac Type Severity Reaction Status Date / Time No Known Allergies Allergy Verified 06/25/23 13:24 Review of Systems ROS Other: All systems not noted in ROS Statement are negative. <Tom Porras - Last Filed: 07/09/23 15:43> ROS Other: All systems not noted in ROS Statement are negative. <Andriy Olmstead - Last Filed: 07/24/23 13:56> ROS Statement: Those systems with pertinent positive or pertinent negative responses have been documented in the HPI. Past Medical History Past Medical History: Osteoarthritis (OA) Additional Past Medical History / Comment(s): hx. anemia History of Any Multi-Drug Resistant Organisms: None Reported Past Surgical History: Bariatric Surgery, Section Additional Past Surgical History / Comment(s): D&C, wisdom teeth removed Past Anesthesia/Blood Transfusion Reactions: No Reported Reaction, Motion Sickness Additional Past Anesthesia/Blood Transfusion Reaction / Comment(s): no hx blood transfusion. mom has PONV Past Psychological History: Anxiety, Bipolar, Depression Smoking Status: Former smoker Past Alcohol Use History: Occasional Past Drug Use History: Marijuana - Past Family History Mother Family Medical History: No Reported History Father Family Medical History: Deep Vein Thrombosis (DVT) <Tom Porras - Last Filed: 07/09/23 15:43> General Exam Limitations: no limitations General appearance: alert, in no apparent distress Head exam: Present: atraumatic, normocephalic, normal inspection Eye exam: Present: normal appearance, PERRL, EOMI. Absent: scleral icterus, conjunctival injection, periorbital swelling ENT exam: Present: normal exam, normal oropharynx, mucous membranes moist Neck exam: Present: normal inspection, full ROM. Absent: tenderness, meningismus, lymphadenopathy Respiratory exam: Present: normal lung sounds bilaterally. Absent: respiratory distress, wheezes, rales, rhonchi, stridor Cardiovascular Exam: Present: normal rhythm, tachycardia, normal heart sounds. Absent: systolic murmur, diastolic murmur, rubs, gallop, clicks GI/Abdominal exam: Present: soft, tenderness, normal bowel sounds. Absent: distended, guarding, rebound, rigid Back exam: Absent: CVA tenderness (R), CVA tenderness (L) <Tom Porras - Last Filed: 07/09/23 15:43> General appearance: alert, in no apparent distress, anxious Head exam: Present: atraumatic, normocephalic, normal inspection Eye exam: Present: normal appearance, PERRL, EOMI. Absent: scleral icterus, conjunctival injection, periorbital swelling ENT exam: Present: normal exam, mucous membranes moist Neck exam: Present: normal inspection. Absent: tenderness, meningismus, lymphad enopathy Respiratory exam: Present: normal lung sounds bilaterally. Absent: respiratory distress, wheezes, rales, rhonchi, stridor Cardiovascular Exam: Present: normal rhythm, tachycardia, normal heart sounds. Absent: systolic murmur, diastolic murmur, rubs, gallop, clicks GI/Abdominal exam: Present: soft, normal bowel sounds. Absent: distended, tenderness, guarding, rebound, rigid Extremities exam: Present: normal inspection, full ROM, normal capillary refill. Absent: tenderness, pedal edema, joint swelling, calf tenderness Back exam: Present: normal inspection Neurological exam: Present: alert, oriented X3, CN II-XII intact Psychiatric exam: Present: normal affect, normal mood Skin exam: Present: warm, dry, intact, normal color. Absent: rash <Andriy Olmstead - Last Filed: 07/24/23 13:56> Course <Andriy Olmstead - Last Filed: 07/24/23 13:56> Vital Signs 07/09/23 07/09/23 07/09/23 12:55 13:58 14:58 Temperature 97.5 F L Pulse Rate 125 H 89 85 Respiratory 18 18 16 Rate Blood Pressure 109/76 116/68 O2 Sat by Pulse 95 97 98 Oximetry 07/09/23 07/09/23 15:58 17:41 Temperature 98.1 F Pulse Rate 81 77 Respiratory 18 18 Rate Blood Pressure 127/76 O2 Sat by Pulse 96 98 Oximetry - Reevaluation(s) Reevaluation #1: 07/09/23 17:35 Medical records reviewed (Andriy Olmstead) Reevaluation #2: 07/09/23 17:35 Patient symptoms unchanged (Andriy Olmstead) Reevaluation #3: 07/09/23 17:35 Patient informed of results questions answered (Andriy Olmstead) Reevaluation #4: Was pt. sent in by a medical professional or institution (, [facility], AIRPORT SH[employer]TLE [employer]IVER, urgent care, hospital, or residential...) When possible be specific @ -no Did you speak to anyone other than the patient for history (EMS, parent, family, police, friend...)? What history was obtained from this source @ -no Did you review nursing and triage notes (agree or disagree)? Why? @ -agree Are old charts reviewed (outside hosp., previous admission, EMS record, old EKG, old radiological studies, urgent care reports/EKG's, residential records)? Report findings @ -yes Differential Diagnosis (chest pain, altered mental status, abdominal pain women, abdominal pain men, vaginal bleeding, weakness, fever, dyspnea, syncope, headache, dizziness, GI bleed, back pain, seizure, CVA, palpatations, mental health, musculoskeletal)? @ -prior EKG interpreted by me (3pts min.). @ -no X-rays interpreted by me (1pt min.). @ -no CT interpreted by me (1pt min.). @ -yes negative for acute disease U/S interpreted by me (1pt. min.). @ -no What testing was considered but not performed or refused? (CT, X-rays, U/S, la bs)? Why? @ -none What meds were considered but not given or refused? Why? @ -none Did you discuss the management of the patient with other professionals (professionals i.e. , [facility], AIRPORT SH[employer]TLE DRIVER, lab, RT, psych nurse, high school social studies teacher, central processing technician, teacher, giving officer, sample case porter)? Give summary @ -no Was smoking cessation discussed for >3mins.? @ -no Were there social determinants of health that impacted care today? How? (Homelessness, low income, unemployed, alcoholism, drug addiction, transportation, low edu. Level, literacy, decrease access to med. care, group home, rehab)? @ -none Was there de-escalation of care discussed even if they declined (Discuss DNR or withdrawal of care, Hospice)? DNR status @ -no What co-morbidities impacted this encounter? (DM, HTN, Smoking, COPD, CAD, Cancer, CVA, ARF, Chemo, Hep., AIDS, mental health diagnosis, sleep apnea, morbid obesity)? @ -none Was patient admitted / discharged? Hospital course, mention meds given and route, prescriptions, significant lab abnormalities, going to OR and other pertinent info. @ - 33 female to ER for evaluation of abdominal pain. Recently postoperative from gastric bypass. Patient is negative changes on CT scan here in the ER with no acute findings. Patient is given hydration pain control can be discharged Discharge Was critical care preformed (if so, how long)? @ -no Undiagnosed new problem with uncertain prognosis? @ -no Drug Therapy requiring intensive monitoring for toxicity (Heparin, Nitro, Insulin, Cardizem)? @ -no Were any procedures done? @ -no Diagnosis/symptom? @ -Postoperative abdominal pain Acute, or Chronic, or Acute on Chronic? @ -Acute Uncomplicated (without systemic symptoms) or Complicated (systemic symptoms)? @ -Complicated Side effects of treatment? @ -no Exacerbation, Progression, or Severe Exacerbation? @ -exacerbation Poses a threat to life or bodily function? How? (Chest pain, USA, NM, pneumonia, PE, COPD, DKA, ARF, appy, cholecystitis, CVA, Diverticulitis, Homicidal, Suici breanne, threat to staff... and all critical care pts) @ -no (Andriy Olmstead) Reevaluation #5: Differential Abdominal Pain Women: Appendicitis, Cholecystitis, diverticulosis, ischemic bowel, pancreatitis, hepatitis, UTI, gastroenteritis, AAA, incarcerated hernia, bowel obstruction, constipation, inflammatory bowel, hepatitis, peptic ulcer disease, splenic infarction, perforated viscus, vulvitis, ovarian torsion, PID, kidney stone, placenta abruption, this is not meant to be an all-inclusive list (Andriy Olmstead) Medical Decision Making - Lab Data Result diagrams: 07/09/23 13:10 07/09/23 13:10 <Tom Porras - Last Filed: 07/09/23 15:43> - Lab Data Result diagrams: 07/09/23 13:10 07/09/23 13:10 - Radiology Data Radiology results: report reviewed (CT abdomen pelvis is positive for postoperative change), image reviewed <Andriy Olmstead - Last Filed: 07/24/23 13:56> - Medical Decision Making 83 female to ER for evaluation of abdominal pain. Recently postoperative from gastric bypass. Patient is negative changes on CT scan here in the ER with no acute findings. Patient is given hydration pain control can be discharged (Andriy Olmstead) - Lab Data Lab Results 07/09/23 07/09/23 07/09/23 Range/Units 13:10 13:10 13:10 WBC 8.0 (3.8-10.6) k/uL RBC 5.37 (3.80-5.40) m/uL Hgb 14.4 (11.4-16.0) gm/dL Hct 44.5 (34.0-46.0) % MCV 82.9 (80.0-100.0) fL MCH 26.8 (25.0-35.0) pg MCHC 32.3 (31.0-37.0) g/dL RDW 13.8 (11.5-15.5) % Plt Count 256 (150-450) k/uL MPV 8.8 Neutrophils % 68 % Lymphocytes % 22 % Monocytes % 6 % Eosinophils % 2 % Basophils % 1 % Neutrophils # 5.5 (1.3-7.7) k/uL Lymphocytes # 1.8 (1.0-4.8) k/uL Monocytes # 0.4 (0-1.0) k/uL Eosinophils # 0.2 (0-0.7) k/uL Basophils # 0.0 (0-0.2) k/uL Sodium 139 (137-145) mmol/L Potassium 4.1 (3.5-5.1) mmol/L Chloride 108 H (98-107) mmol/L Carbon Dioxide 19 L (22-30) mmol/L Anion Gap 12 mmol/L BUN 18 H (7-17) mg/dL Creatinine 0.62 (0.52-1.04) mg/dL Est GFR (CKD-EPI)AfAm >90 (>60 ml/min/1.73 sqM) Est GFR (CKD-EPI)NonAf >90 (>60 ml/min/1.73 sqM) Glucose 81 (74-99) mg/dL Plasma Lactic Acid Chacorta (0.7-2.0) mmol/L Calcium 9.9 (8.4-10.2) mg/dL Magnesium 1.7 (1.6-2.3) mg/dL Total Bilirubin 0.5 (0.2-1.3) mg/dL AST 29 (14-36) U/L ALT 23 (4-34) U/L Alkaline Phosphatase 116 (38-126) U/L Total Protein 7.9 (6.3-8.2) g/dL Albumin 4.8 (3.5-5.0) g/dL Amylase 49 (30-110) U/L Lipase 252 (23-300) U/L Urine Color Yellow Urine Appearance Clear (Clear) Urine pH 5.0 (5.0-8.0) Ur Specific [place] 1.044 H (1.001-1.035) Urine Protein Trace H (Negative) Urine Glucose (UA) Negative (Negative) Urine Ketones 1+ H (Negative) Urine Blood Small H (Negative) Urine Nitrite Positive H (Negative) Urine Bilirubin Negative (Negative) Urine Urobilinogen <2.0 (<2.0) mg/dL Ur Leukocyte Esterase Negative (Negative) Urine RBC 4 (0-5) /hpf Urine WBC 1 (0-5) /hpf Ur Squamous Epith Cells 1 (0-4) /hpf Urine Bacteria Moderate H (None) /hpf Hyaline Casts 3 H (0-2) /lpf Urine Mucus Many H (None) /hpf 07/09/23 Range/Units 13:10 WBC (3.8-10.6) k/uL RBC (3.80-5.40) m/uL Hgb (11.4-16.0) gm/dL Hct (34.0-46.0) % MCV (80.0-100.0) fL MCH (25.0-35.0) pg MCHC (31.0-37.0) g/dL RDW (11.5-15.5) % Plt Count (150-450) k/uL MPV Neutrophils % % Lymphocytes % % Monocytes % % Eosinophils % % Basophils % % Neutrophils # (1.3-7.7) k/uL Lymphocytes # (1.0-4.8) k/uL Monocytes # (0-1.0) k/uL Eosinophils # (0-0.7) k/uL Basophils # (0-0.2) k/uL Sodium (137-145) mmol/L Potassium (3.5-5.1) mmol/L Chloride (98-107) mmol/L Carbon Dioxide (22-30) mmol/L Anion Gap mmol/L BUN (7-17) mg/dL Creatinine (0.52-1.04) mg/dL Est GFR (CKD-EPI)AfAm (>60 ml/min/1.73 sqM) Est GFR (CKD-EPI)NonAf (>60 ml/min/1.73 sqM) Glucose (74-99) mg/dL Plasma Lactic Acid [place] 1.0 (0.7-2.0) mmol/L Calcium (8.4-10.2) mg/dL Magnesium (1.6-2.3) mg/dL Total Bilirubin (0.2-1.3) mg/dL AST (14-36) U/L ALT (4-34) U/L Alkaline Phosphatase (38-126) U/L Total Protein (6.3-8.2) g/dL Albumin (3.5-5.0) g/dL Amylase (30-110) U/L Lipase (23-300) U/L Urine Color Urine Appearance (Clear) Urine pH (5.0-8.0) Ur Specific [place] (1.001-1.035) Urine Protein (Negative) Urine Glucose (UA) (Negative) Urine Ketones (Negative) Urine Blood (Negative) Urine Nitrite (Negative) Urine Bilirubin (Negative) Urine Urobilinogen (<2.0) mg/dL Ur Leukocyte Esterase (Negative) Urine RBC (0-5) /hpf Urine WBC (0-5) /hpf Ur Squamous Epith Cells (0-4) /hpf Urine Bacteria (None) /hpf Hyaline Casts (0-2) /lpf Urine Mucus (None) /hpf Disposition <Tom Porras - Last Filed: 07/09/23 15:43> Is patient prescribed a controlled substance at d/c from ED?: No Time of Disposition: 16:40 <Andriy Olmstead - Last Filed: 07/24/23 13:56> Clinical Impression: Postoperative pain, Dehydration, Abdominal pain Disposition: HOME SELF-CARE Condition: Good Instructions (If sedation given, give patient instructions): Dehydration (ED) Referrals: None,Stated [Primary Care Provider] - 1-2 days
[2023-07-09] MEDS: SODIUM CHLORIDE 0.9% 2,000 ML IV STA (16:05)
--- NOTE | 2023-07-09 16:36 | CT ---
EXAMINATION TYPE: CT abdomen pelvis w con DATE OF EXAM: 07/09/2023 COMPARISON: NONE HISTORY: 33-year-old female pain, recent bariatric surgery one month ago, ABD PAIN TECHNIQUE: Contiguous axial scanning of the abdomen and pelvis following administration of 100 ml Iso mana 300 IV contrast. Delayed images through the kidneys and coronal/sagittal reconstructions perform ed. CT DLP: 1423.5 mGycm Automated exposure control for dose reduction was used. FINDINGS: Heart normal size without pericardial effusion. Lung bases clear without pleural effusion. Liver mildly enlarged at 18.2 cm. There may be mild fatty infiltration of the liver. Phrygian cap of the gallbladder. Portal venous system is patent. No biliary ductal dilatation. Adrenal glands, spleen with tiny inferior splenules, and pancreas show no gross abnormality. Suspect a couple tiny benign cysts within the kidneys measuring up to 9 mm. Symmetric uptake and excr etion of contrast from both kidneys. Subcutaneous fat stranding anterior left mid abdomen likely corresponding to previous laparoscopy por britta. Lesser degree of changes are present anterior abdomen at other sites as well. Given the greater changes at the anterior left mid abdomen, correlate to exclude. Postsurgical change of Karlee-en-Y gastric bypass. No dilated small bowel or abnormal fluid collection is seen. Scattered mild stool. No pericolic inflammatory change. Bladder is urine distended. Uterus anteverted. Both ovaries are visualized. Thick walled cystic struc ture measuring 1.9 cm at the left ovary probably a corpus luteum. Mild cul-de-sac free fluid likely p hysiologic. No pelvic lymphadenopathy. Bones: No osseous destructive process. IMPRESSION: 1. STATUS POST KARLEE-EN-Y GASTRIC BYPASS. NO DILATED BOWEL OR ABNORMAL FLUID COLLECTION IS IDENTIFIED. NO CONTRAST LEAK IS SEEN. 2. SOME STRANDING IN THE ANTERIOR SUBCUTANEOUS FAT OF THE MID ABDOMEN SUGGESTING SITES OF LAPAROSCOPY PORTALS. HOWEVER, CHANGES AT THE LEFT MID ABDOMEN SHOW A GREATER DEGREE OF FAT STRANDING. CORRELATE TO EXCLUDE CELLULITIS HERE. 3. THICK WALLED CYSTIC STRUCTURE MEASURING 1.9 CM OF THE LEFT OVARY, SUSPECTED CORPUS LUTEUM. FOLLOW- UP ULTRASOUND IN 6-8 WEEKS TO ENSURE INVOLUTION. 4. MILD CUL-DE-SAC FREE FLUID LIKELY PHYSIOLOGIC.
[2023-07-09] MEDS: MORPHINE SULFATE 4 MG/ML SYRINGE IVP STA ×2 (17:09→17:40)
[2023-07-09] MEDS: traMADol 50 MG STARTER PACK 3 TAB BTL PO STA (17:40)
[2023-07-09] MEDS: ONDANSETRON 4 MG ODT STARTER PACK 2 TAB BTL PO STA (17:40)
[2023-07-09 17:50] VITALS: BP 127/76; PULSE 77; TEMP 98.1
== END 2023-07-09 17:43 | disposition home or self-care (01) ==
LOC: EC 12:44
DX: G89.18 Other acute postprocedural pain (principal); E86.0 Dehydration; R10.84 Generalized abdominal pain; Z87.891 Personal history of nicotine dependence; Z98.84 Bariatric surgery status
CPT/HCPCS: 36415; 93005; 80053; 82150; 83605; 83690; 83735; 85025; 81001; 74177; 99284; 96374; 96361; J2270; S0119; Q9967